=== PATIENT | male | born 1950 | race American Indian/Alaskan Native ===

== ENCOUNTER 2016-12-13 15:37 | Emergency (ER) | payer MEDICARE, OTHER ==
[2016-12-13 16:09] VITALS: BP 0/0
[2016-12-13] MEDS ORDERED: ADRENALIN ONE (18:46)
--- NOTE | 2016-12-13 19:03 | Emergency Department Report ---
ED CPR HPI - General Chief Complaint: Cardiac Arrest/CPR Stated Complaint: CARDIAC ARREST Source: EMS Mode of arrival: Stretcher Limitations: Altered Mental Status - History of Present Illness Initial Comments: Patient presents to the emergency department after very prolonged CPR. He is probably have a subtotal about 40 minutes of resuscitation without return of spontaneous circulation. Paramedics report that he was in PEA throughout with a fairly organized complex. He never was defibrillated. He never was in a shockable rhythm. He is already received at least 6 rounds of epinephrine by the time of his arrival. Paramedics state that the patient collapsed in front of a network security architect. He was apneic and pulseless on their arrival. They intubated the patient and initiated standard ACLS protocols. MD Complaint: found unresponsive, stopped breathing -: minute(s) Place: street Bystander CPR Performed: No Initial Findings in the Field: no respirations, PEA ROSC in the Field: No Associated Injuries: No Associated Symptoms: other (no history available) Treatments Prior to Arrival: intubation, chest compressions, epinephrine mgs # ED Review of Systems ROS: Stated complaint: CARDIAC ARREST Other details as noted in HPI Comment: Unobtainable due to pts medical conditions ED Past Medical Hx - Past Medical History Additional medical history: Unknown - Social History Other Social History: Patient is . presented to the emergency department later. Otherwise unknown. ED Physical Exam - General Limitations: Altered Mental Status General appearance: other (no signs of life) - Head Head exam: Present: atraumatic - Eye Pupils: Present: other (fixed dilated) - Neck Neck exam: Present: normal inspection - Respiratory Respiratory exam: Present: normal lung sounds bilaterally (with assisted ventilation) - Cardiovascular Cardiovascular Exam: Present: other (no heart sounds) - GI/Abdominal GI/Abdominal exam: Present: soft - Extremities Exam Extremities exam: Present: normal inspection - Neurological Exam Neurological exam: Present: other (no evidence of neurological function) - Skin Skin exam: Present: warm ED Course Vital Signs 12/13/16 15:37 Pulse Rate 0 L Respiratory 0 L Rate Blood Pressure 0/0 O2 Sat by Pulse 0 L Oximetry - Reevaluation(s) Reevaluation #1: Doppler exam was completely negative despite persistent PEA. The patient was pronounced DOA. The family was counseled. Further resuscitative efforts were futile. 12/13/16 19:08 Critical care attestation.: If time is entered above; I have spent that time in minutes in the direct care of this critically ill patient, excluding procedure time. ED Disposition Clinical Impression: Cardiac arrest Disposition: DC-20 Is pt being admited?: No Does the pt Need Aspirin: No Condition: Stable Referrals: PRIMARY CARE, [Primary Care Provider] - 3-5 Days Time of Disposition: 19:09
== END 2016-12-13 19:45 ==
LOC: ED 15:37
DX: I46.9 Cardiac arrest, cause unspecified (principal)
CPT/HCPCS: 99285; J0171